=== PATIENT | male | born 1965 | race Caucasian/White ===

== ENCOUNTER 2018-08-28 09:00 | Inpatient (IN) | payer MEDICAID ==
[~2018-08-28] VITALS: Ht 172.7 cm; Wt 124.8 kg
[2018-08-28 10:33] LABS: BASOPHILS % (AUTO) 0.9 % (0.0-2.0); EOSINOPHILS % (AUTO) 2.6 % (1.0-6.0); HEMATOCRIT 48.4 % (41-53); HEMOGLOBIN 15.7 g/dL (13.5-17.5); LYMPHOCYTES # (AUTO) 1.6 K/uL (1.0-4.8); LYMPHOCYTES % (AUTO) 21.2 % (22.0-44.0); MEAN CORPUSCULAR HEMOGLOBIN 28.6 pg (26.0-34.0); MEAN CORPUSCULAR HGB CONC 32.3 G/dL (31.0-37.0); MEAN CORPUSCULAR VOLUME 88 fL (80-100); MONOCYTES # (AUTO) 0.6 K/uL (0.1-1.0); MONOCYTES % (AUTO) 8.7 % (2.0-9.0); NEUTROPHILS # (AUTO) 4.9 K/uL (1.8-7.7); NEUTROPHILS % (AUTO) 66.6 % (40.0-70.0); PLATELET COUNT (AUTO) 196 K/uL (150-450); RED BLOOD CELL COUNT(AUTO) 5.48 MIL/uL (4.50-5.90); RED CELL DISTRIBUTION WIDTH 18.7 % (11.5-14.5)
[2018-08-28 10:41] LABS: ANION GAP 8 mmol/L (8-16); CALCIUM, TOTAL 9.2 mg/dL (8.8-10.5); CARBON DIOXIDE 27 mmol/L (22-29); CHLORIDE 105 mmol/L (98-107); CREATININE 0.88 mg/dL (0.60-1.30); GLOMERULAR FILTR. RATE CALC > 60 mL/min (>60); GLUCOSE,RANDOM 109 mg/dL (70-110); POTASSIUM 4.4 mmol/L (3.5-5.1); SODIUM SERUM 140 mmol/L (136-145); UREA NITROGEN, BLOOD 9 mg/dL (7-18)
[2018-08-28 10:42] LABS: INR 1.1 (0.9-1.1); PROTHROMBIN TIME 11.8 SEC (9.4-11.6)
[2018-08-28 11:06] LABS: ALANINE AMINOTRANSFERASE 46 U/L (12-78); ALBUMIN 3.9 g/dL (3.4-5.0); ALKALINE PHOSPHATASE 77 U/L (46-116); ASPARTATE AMINOTRANSFERASE 35 U/L (15-37); BILIRUBIN,TOTAL 0.8 mg/dL (0.1-1.0); CREATINE KINASE, TOTAL ONLY 189 U/L (39-308); TOTAL PROTEIN, SERUM 7.2 g/dL (6.4-8.2)
[2018-08-28 11:07] LABS: B-TYPE NATRIURETIC PEPTIDE 81 pg/mL (0-100)
[2018-08-28] MEDS ORDERED: METOPROLOL TARTRATE 25 MG TABLET PO SCH (12:15)
[2018-08-28] MEDS ORDERED: MAGNESIUM HYDROXIDE SUSPENSION 30 ML UDCUP PO PRN (12:15)
[2018-08-28] MEDS ORDERED: ACETAMINOPHEN 325 MG TABLET PO PRN (12:15)
[2018-08-28] MEDS: ASPIRIN 81 MG CHEWABLE TABLET PO SCH (12:33)
[2018-08-28] MEDS: MULTIVITAMINS WITH MINERALS, THERAPEUTIC TABLET PO SCH (12:33)
[2018-08-28 13:52] VITALS: BP 148/106
[2018-08-28 15:21] LABS: ABG A-A DIFF O2 18.2 mmHg (10-20.0); ABG BASE EXCESS 1.5 mmol/L (-2.0-3.0); ABG CARBOXYHEMOGLOBIN 0.7 % (0.0-1.5); ABG HCO3 25.4 mmol/L (22.0-26.0); ABG METHEMOGLOBIN 0.3 % (0.0-1.5); ABG OXYGEN CONTENT 21.5 mL/dL (15.0-23.0); ABG OXYGEN SATURATION 95.9 % (95.0-98.0); ABG OXYHEMOGLOBIN 94.9 % (94.0-100.0); ABG PCO2 43 mmHg (35-45); ABG PH 7.402 (7.35-7.450); ABG TOTAL HEMOGLOBIN 16.1 G/dL (12.0-18.0); O2 DEVICE,BLOOD GAS ROOM AIR (ROOM AIR); SITE, BLOOD GAS RT RADIAL; SOURCE, BLOOD GAS ARTERIAL; TEMPERATURE, FAHRENHEIT, BG 97.9 FAHREN (96.0-98.6)
[2018-08-28] MEDS: LISINOPRIL 10 MG TABLET PO SCH (16:14)
[2018-08-28] MEDS: APIXABAN 5 MG TABLET PO SCH ×2 (16:14→20:59)
[2018-08-28] MEDS: HEPARIN SODIUM,PORCINE 5,000 UNITS/ML VIAL SQ SCH (16:15)
[2018-08-28] MEDS: AMIODARONE HCL 200 MG TABLET PO SCH ×2 (16:15→20:59)
[2018-08-28 19:28] VITALS: BP 130/93
[2018-08-28] MEDS: METOPROLOL TARTRATE 25 MG TABLET PO SCH (20:59)
[2018-08-28] MEDS: DOCUSATE SODIUM 100 MG CAPSULE PO SCH (21:00)
[2018-08-29] VITALS (7 sets, daily range): BP systolic 102–131; BP diastolic 63–99
[2018-08-29] MEDS: HEPARIN SODIUM,PORCINE 5,000 UNITS/ML VIAL SQ SCH ×3 (00:07→16:46)
[2018-08-29] MEDS: APIXABAN 5 MG TABLET PO SCH ×2 (08:03→20:59)
[2018-08-29] MEDS: FAMOTIDINE 20 MG TABLET PO SCH (08:03)
[2018-08-29] MEDS: LISINOPRIL 10 MG TABLET PO SCH (08:04)
[2018-08-29] MEDS: DOCUSATE SODIUM 100 MG CAPSULE PO SCH ×2 (08:04→20:59)
[2018-08-29] MEDS: MULTIVITAMINS WITH MINERALS, THERAPEUTIC TABLET PO SCH (08:05)
[2018-08-29] MEDS: METOPROLOL TARTRATE 25 MG TABLET PO SCH (08:05)
[2018-08-29] MEDS: ASPIRIN 81 MG CHEWABLE TABLET PO SCH (08:05)
[2018-08-29] MEDS: AMIODARONE HCL 200 MG TABLET PO SCH (08:05)
[2018-08-29] MEDS: CARVEDILOL 6.25 MG TABLET PO SCH ×2 (15:03→20:59)
[2018-08-30] MEDS: HEPARIN SODIUM,PORCINE 5,000 UNITS/ML VIAL SQ SCH ×2 (00:13→07:31)
[2018-08-30 04:42] VITALS: BP 120/74
[2018-08-30 07:20] VITALS: BP 122/84
[2018-08-30] MEDS: LISINOPRIL 10 MG TABLET PO SCH (07:31)
[2018-08-30] MEDS: FAMOTIDINE 20 MG TABLET PO SCH (07:31)
[2018-08-30] MEDS: CARVEDILOL 6.25 MG TABLET PO SCH (07:31)
[2018-08-30] MEDS: MULTIVITAMINS WITH MINERALS, THERAPEUTIC TABLET PO SCH (07:32)
[2018-08-30] MEDS: ASPIRIN 81 MG CHEWABLE TABLET PO SCH (07:32)
[2018-08-30] MEDS: APIXABAN 5 MG TABLET PO SCH (07:32)
[2018-08-30] MEDS: DOCUSATE SODIUM 100 MG CAPSULE PO SCH (07:32)
[2018-08-30] MEDS ORDERED: AMIODARONE HCL 200 MG TABLET PO SCH (09:00)
[2018-08-30] MEDS ORDERED: CARV6 PO (10:17)
[2018-08-30] MEDS ORDERED: AMIO200T44 PO (10:18)
[2018-08-30] MEDS ORDERED: APIX5TAB PO (10:18)
[2018-08-30] MEDS ORDERED: LISI-660 PO (10:19)
[2018-08-30 11:23] VITALS: BP 104/61
== END 2018-08-30 15:05 | disposition home or self-care (01) | DRG 201 ==
LOC: EMS 09:04 → 5S 13:04
PROVIDERS: ADMIT Internal Medicine; ATTEND Internal Medicine
DX: I48.92 Unspecified atrial flutter (principal); I42.9 Cardiomyopathy, unspecified; E44.0 Moderate protein-calorie malnutrition; E66.01 Morbid (severe) obesity due to excess calories; I11.0 Hypertensive heart disease with heart failure; I50.9 Heart failure, unspecified; Z68.41 Body mass index [BMI] 40.0-44.9, adult; D32.9 Benign neoplasm of meninges, unspecified; I49.9 Cardiac arrhythmia, unspecified; F12.90 Cannabis use, unspecified, uncomplicated; F10.10 Alcohol abuse, uncomplicated; J44.9 Chronic obstructive pulmonary disease, unspecified
CPT/HCPCS: 36600; 70450; 70551; 82805; 83735; 93005; 93306; G0378; J1644

== ENCOUNTER 2020-09-14 12:37 | Emergency (ER) | payer MEDICAID ==
[~2020-09-14] VITALS: Ht 172.7 cm; Wt 109.1 kg
[~2020-09-14 12:37] MED LIST: AMIO200T68 PO; APIX5TAB PO; CARV6 PO; LISI-892 PO
[2020-09-14] MEDS ORDERED: KETOROLAC TROMETHAMINE 30 MG/ML VIAL IM ONE (13:45)
[2020-09-14 15:35] VITALS: BP 124/90
== END 2020-09-14 15:36 | disposition home or self-care (01) ==
LOC: EMS 12:39
DX: M25.561 Pain in right knee (principal); F12.90 Cannabis use, unspecified, uncomplicated; X50.1XXA Overexertion from prolonged static or awkward postures, initial encounter; Y93.H2 Activity, gardening and landscaping; Y92.89 Other specified places as the place of occurrence of the external cause; Y99.8 Other external cause status
CPT/HCPCS: 73562; 96372; 99283; J1885

== ENCOUNTER 2020-09-28 15:21 | Emergency (ER) | payer MEDICAID ==
[~2020-09-28] VITALS: Ht 170.2 cm; Wt 126.8 kg
[2020-09-28] MEDS ORDERED: ASPI-1450 PO (15:30)
[2020-09-28] MEDS ORDERED: LOSA50TA37 PO (15:30)
[2020-09-28] MEDS ORDERED: NAPR-1025 PO (15:30)
[2020-09-28] MEDS ORDERED: METO-558 PO (15:30)
[2020-09-28 16:50] VITALS: BP 148/88
== END 2020-09-28 16:51 | disposition home or self-care (01) ==
LOC: EMS 15:22
DX: M25.561 Pain in right knee (principal); M25.562 Pain in left knee; I10 Essential (primary) hypertension; F12.90 Cannabis use, unspecified, uncomplicated; Z79.899 Other long term (current) drug therapy
CPT/HCPCS: 99282; Z7502

== ENCOUNTER 2021-03-04 15:48 | Emergency (ER) | payer MEDICAID ==
[~2021-03-04] VITALS: Ht 175.3 cm; Wt 131.8 kg
[~2021-03-04 15:48] MED LIST changes: -AMIO200T68 PO; -APIX5TAB PO; +ASPI-1450 PO; -CARV6 PO; -LISI-892 PO; +LOSA50TA37 PO; +METO-558 PO; +NAPR-1025 PO
[2021-03-04 17:23] LABS: BASOPHILS % (AUTO) 0.7 % (0.0-2.0); EOSINOPHILS % (AUTO) 3.6 % (1.0-6.0); HEMATOCRIT 50.4 % (41-53); HEMOGLOBIN 16.6 g/dL (13.5-17.5); LYMPHOCYTES # (AUTO) 1.6 K/uL (1.0-4.8); LYMPHOCYTES % (AUTO) 17.7 % (22.0-44.0); MEAN CORPUSCULAR HEMOGLOBIN 32.1 pg (26.0-34.0); MEAN CORPUSCULAR HGB CONC 32.9 G/dL (31.0-37.0); MEAN CORPUSCULAR VOLUME 98 fL (80-100); MONOCYTES # (AUTO) 0.6 K/uL (0.1-1.0); MONOCYTES % (AUTO) 6.2 % (2.0-9.0); NEUTROPHILS # (AUTO) 6.5 K/uL (1.8-7.7); NEUTROPHILS % (AUTO) 71.8 % (40.0-70.0); PLATELET COUNT (AUTO) 218 K/uL (150-450); RED BLOOD CELL COUNT(AUTO) 5.17 MIL/uL (4.50-5.90); RED CELL DISTRIBUTION WIDTH 13.9 % (11.5-14.5)
[2021-03-04 17:45] LABS: ANION GAP 10 mmol/L (8-16); CALCIUM, TOTAL 8.5 mg/dL (8.8-10.5); CARBON DIOXIDE 27 mmol/L (22-29); CHLORIDE 100 mmol/L (98-107); CREATININE 0.94 mg/dL (0.60-1.30); GLOMERULAR FILTR. RATE CALC > 60 mL/min (>60); GLUCOSE,RANDOM 115 mg/dL (70-110); POTASSIUM 4.3 mmol/L (3.5-5.1); SODIUM SERUM 137 mmol/L (136-145); UREA NITROGEN, BLOOD 7 mg/dL (7-18)
[2021-03-04 17:50] LABS: ALANINE AMINOTRANSFERASE 70 U/L (12-78); ALBUMIN 3.6 g/dL (3.4-5.0); ALKALINE PHOSPHATASE 83 U/L (46-116); ASPARTATE AMINOTRANSFERASE 51 U/L (15-37); BILIRUBIN,TOTAL 0.5 mg/dL (0.1-1.0); TOTAL PROTEIN, SERUM 7.3 g/dL (6.4-8.2)
[2021-03-04] MEDS ORDERED: SODIUM CHLORIDE 0.9% 100 ML ONE (19:39)
[2021-03-04] MEDS ORDERED: IOHEXOL 350 MG/ML 100 ML VIAL ONE (19:39)
[2021-03-04 21:00] VITALS: BP 124/85
== END 2021-03-04 21:18 | disposition home or self-care (01) ==
LOC: EMS 15:52
DX: M54.50 Low back pain, unspecified (principal); F10.10 Alcohol abuse, uncomplicated; I10 Essential (primary) hypertension; F12.90 Cannabis use, unspecified, uncomplicated; W19.XXXA Unspecified fall, initial encounter; Y93.89 Activity, other specified; Y92.89 Other specified places as the place of occurrence of the external cause; Y99.8 Other external cause status; Y90.6 Blood alcohol level of 120-199 mg/100 ml
CPT/HCPCS: 36415; 70450; 71260; 72100; 72125; 80053; 85025; 99285; G0480; J7050; Q9967